=== PATIENT | male | born 1955 | race Caucasian/White ===

== ENCOUNTER → 2018-04-08 | Outpatient (CLI) | payer OTHER ==
[~2018-04-08] MED LIST: ASCO-599 PO; BUDE3CAP6 PO; DOC100 PO; NONE CURRENTLY; PER PO; VITA1CAP46 PO; VITE400 PO; [UNRECOGNIZED DRUG - CODE] PO
== END ==
LOC: LAB 16:35
PROVIDERS: ATTEND Internal Medicine
DX: K50.90 Crohn's disease, unspecified, without complications (principal); R92.0 Mammographic microcalcification found on diagnostic imaging of breast; R94.6 Abnormal results of thyroid function studies
CPT/HCPCS: 81001

== ENCOUNTER 2018-04-22 09:49 | Outpatient (RCR) | payer OTHER ==
[2018-04-23] MEDS ORDERED: IOPAMIDOL 76% 75 ML INFUS BTL 0 ML ONE (08:16)
[2018-04-23] MEDS ORDERED: NS 0.9% 25 ML BAG 75 ML ONE (08:41)
[2018-04-23] MEDS ORDERED: IOPAMIDOL 76% 50 ML INFUS BTL 50 ML ONE (08:41)
[2018-04-23] MEDS ORDERED: IOPAMIDOL 76% 75 ML INFUS BTL 75 ML ONE (08:43)
--- NOTE | 2018-04-23 10:20 | RADIOLOGY IMAGING REPORT ---
[place] [facility] [place]: Adi Lazcano : 1955 MR: [id number] V: [id number] EXAM DATE: ORDERING PHYSICIAN: SUSAN HOLDEN TECHNOLOGIST: Location: [facility] [place] Patient: Adi Lazcano : 1955 Visit/Account:[id number] Date of Sevice: 04/23/2018 KUB SINGLE VIEW ABDOMEN, KUB SINGLE VIEW ABDOMEN History: Patient with right flank pain. Abdominal films obtained prior to and following the intraven ous injection of contrast. Comparison study: CT scan April 23, 2018 with and without contrast. Findings: KUB without contrast: Images show no findings of a renal or ureteral calculus. There are surgical clips in the anterior abdominal wall inferiorly. KUB with contrast: Following the intravenous injection of contrast a CT scan was performed. A KUB sh ows mild hydronephrosis and hydroureter extending to what appears to be a distal right ureteral obstr uction. On the CT scan this was felt to represent thickening of the distal right ureter. No calculu s is seen. IMPRESSION: 1. Mild hydronephrosis and hydroureter extending to the distal right ureter. No calculus is seen. The CT scan suggested distal right ureteral wall thickening. Otherwise are worrisome for distal righ t ureteral transitional cell carcinoma. 2. Significant BPH result in mass effect upon the base of the bladder, but this may not be the cause of the distal right ureteral obstruction. Results were called to SUSAN HOLDEN M.D. At 04/23/2018 10:15 AM. Report Dictated By: Terrence Simon MD at 04/23/2018 10:04 AM Report E-Signed By: Terrence Simon MD at 04/23/2018 10:15 AM WSN:[email or web address]
--- NOTE | 2018-04-23 10:20 | RADIOLOGY IMAGING REPORT ---
FACILITY: [facility] PATIENT NAME: Adi Lazcano : 1955 MR: [id number] V: [id number] EXAM DATE: ORDERING PHYSICIAN: SUSAN HOLDEN TECHNOLOGIST: Location: [facility] Patient: Adi Lazcano : 1955 Visit/Account:[id number] Date of Sevice: 04/23/2018 ABDOMEN/PELVIS W/WO CONTRAST History: 62-year-old male with hematuria. Technique: CT images were obtained through the abdomen and pelvis with and without the intravenous in jection of Isovue-370 125 mL. Coronal and sagittal reformations were then created. One of the following dose optimization techniques was utilized in the performance of this exam: Autom ated exposure control; adjustment of the mA and/or kV according to the patient's size; or use of an i terative reconstruction technique. Specific details can be referenced in the facility's radiology C T exam operational policy. Comparison study: CT abdomen and pelvis IVP April 23, 2018. Findings: Lung bases: There may be hyperinflation of the lungs. Hepatobiliary: There are no findings of a mass in the liver. There is no hepatic or portal vein thro mbosis. The gallbladder is unremarkable and there is no gallstone disease or biliary ductal dilatati on. Spleen: Negative. Adrenals: Negative Pancreas: There is mild fatty infiltration of the pancreas but there is no finding of pancreatic duct al dilatation or mass. Kidneys/genitourinary/retroperitoneum: There is mild to moderate hydronephrosis and hydroureter on th e right side extending distally to a concentric soft tissue mass in the distal right ureter. The fin dings are very worrisome for transitional cell carcinoma involving the distal right ureter. There is also BPH, but this is not likely to be the cause of the distal right ureteral dilatation. On the le ft side there is no hydronephrosis. There is a left cortical cyst measuring 4.0 cm in size. Bowel/peritoneum/mesentery: There is a normal air-filled appendix in the right lower quadrant. There are no dilated loops of large or small bowel to suggest ileus or obstruction. There are scattered d iverticula in the sigmoid colon but there are no findings of diverticulitis. Pelvic/genital urinary: The bladder is dilated. The prostate is significantly enlarged. There are f oci of calcification in the prostate. Prostate enlargement may not be the cause of distal right uret eral dilatation. There is no lymphadenopathy in the pelvis. Vessels: Negative. Lymph node: No findings of lymphadenopathy. Body wall/bones: There are radiopacities in the anterior abdominal wall and inguinal regions related to prior surgery. IMPRESSION: 1. The most prominent finding on this exam is mild hydronephrosis and moderate hydroureter on the ri ght side extending distally to a concentric stricture in the distal right ureter that is likely relat ed to transitional cell carcinoma. 2. Significant BPH with prosthetic calculi, but this is not likely to be the cause of the patient's right hydronephrosis and hydroureter. Cystoscopy may be helpful for further evaluation. 3. There are scattered diverticula the sigmoid colon, but no findings of diverticulitis. 4. Postoperative changes in the anterior abdominal wall inferiorly. Results were called to SUSAN HOLDEN M.D. At 04/23/2018 9:50 AM. Report Dictated By: Terrence Simon MD at 04/23/2018 9:28 AM Report E-Signed By: Terrence Simon MD at 04/23/2018 10:15 AM WSN:[email or web address]
--- NOTE | 2018-04-23 10:20 | RADIOLOGY IMAGING REPORT ---
FACILITY: [facility] PATIENT NAME: Adi Lazcano : 1955 MR: [id number] V: [id number] EXAM DATE: ORDERING PHYSICIAN: SUSAN HOLDEN TECHNOLOGIST: Location: Patient: Adi Lazcano : 1955 Visit/Account:[id number] Date of Sevice: 04/23/2018 KUB SINGLE VIEW ABDOMEN, KUB SINGLE VIEW ABDOMEN History: Patient with right flank pain. Abdominal films obtained prior to and following the intraven ous injection of contrast. Comparison study: CT scan April 23, 2018 with and without contrast. Findings: KUB without contrast: Images show no findings of a renal or ureteral calculus. There are surgical clips in the anterior abdominal wall inferiorly. KUB with contrast: Following the intravenous injection of contrast a CT scan was performed. A KUB sh ows mild hydronephrosis and hydroureter extending to what appears to be a distal right ureteral obstr uction. On the CT scan this was felt to represent thickening of the distal right ureter. No calculu s is seen. IMPRESSION: 1. Mild hydronephrosis and hydroureter extending to the distal right ureter. No calculus is seen. The CT scan suggested distal right ureteral wall thickening. Otherwise are worrisome for distal righ t ureteral transitional cell carcinoma. 2. Significant BPH result in mass effect upon the base of the bladder, but this may not be the cause of the distal right ureteral obstruction. Results were called to SUSAN HOLDEN M.D. At 04/23/2018 10:15 AM. Report Dictated By: Terrence Simon MD at 04/23/2018 10:04 AM Report E-Signed By: Terrence Simon MD at 04/23/2018 10:15 AM WSN:[email or web address]
== END 2018-04-23 18:00 | disposition home or self-care (01) ==
LOC: CT 09:49
DX: N13.30 Unspecified hydronephrosis (principal); K57.30 Diverticulosis of large intestine without perforation or abscess without bleeding
CPT/HCPCS: 36415; 74018; 74178; 82565; Q9967